=== PATIENT | female | born 1995 | race Caucasian/White ===

== ENCOUNTER 2017-10-11 20:29 | Observation (INO) | payer OTHER ==
[~2017-10-11] VITALS: Ht 162.6 cm; Wt 86.2 kg
[~2017-10-11 20:29] MED LIST: CLON.5 PO; DEXT5ER PO; HYDHCL25 PO; LEVSOD50 PO; Norco 5-325 Ta1 EACH PO; ZIPR20 PO
[2017-10-11 22:58] LABS: Source, Urine Clean Catch
[2017-10-11 23:02] LABS: Bilirubin, Urine Neg (Neg); Blood, Urine 1+ (Neg); Glucose Qualitative, Urine Neg (Neg); Ketones, Urine Neg (Neg); Leukocyte Esterase, Urine Neg (Neg); Nitrite, Urine Neg (Neg); Protein, Urine 1+ (Neg); Urobilinogen, Urine NORM (Normal)
[2017-10-11 23:03] LABS: BASOPHILS ABSOLUTE AUTO 0.03 K/mm3 (0.00-0.23); BASOPHILS PERCENT AUTO 0 % (0-2); EOSINOPHILS ABSOLUTE AUTO 0.04 K/mm3 (0.00-0.68); EOSINOPHILS PERCENT AUTO 0 % (0-6); Hematocrit 39.9 % (33.0-51.0); Hemoglobin 13.5 g/dL (11.5-16.0); IMMATURE GRAN ABSOLUTE AUTO 0.02 K/mm3 (0.00-0.10); IMMATURE GRAN PERCENT AUTO 0 % (0-1); LYMPHOCYTES ABSOLUTE AUTO 1.69 K/mm3 (0.84-5.20); LYMPHOCYTES PERCENT AUTO 17 % (21-46); MONOCYTES ABSOLUTE AUTO 0.44 K/mm3 (0.16-1.47); MONOCYTES PERCENT AUTO 4 % (4-13); Mean Corpuscular HGB 29.8 pg (26.0-34.0); Mean Corpuscular HGB Conc 33.8 g/dL (31.5-36.5); Mean Corpuscular Volume 88 fL (80-100); Mean Platelet Volume 10.3 fL (9.1-12.4); NEUTROPHILS ABSOLUTE AUTO 7.72 K/mm3 (1.96-9.15); NEUTROPHILS PERCENT AUTO 78 % (41-73); Platelet Count 143 K/mm3 (150-400); RDW Coefficient Variation 12.5 % (11.7-14.2); Red Blood Cell Count 4.53 M/mm3 (3.80-5.20); White Blood Cell Count 9.94 K/mm3 (4.00-11.30)
[2017-10-11 23:05] LABS: Appearance, Urine Clear (Clear); Color, Urine Yellow (P-Yellow)
[2017-10-11 23:08] LABS: Bacteria Mod /hpf; Squamous Epithelial Cells Mod /hpf (Few); White Blood Cells, Urine 0-2 /hpf (0-5)
[2017-10-11 23:12] LABS: U Amphetamine Screen Not Detected; U Barbituate Screen Not Detected; U Benzodiazapine Screen Not Detected; U Buprenorphine Screen Not Detected; U Cannabinoids Screen Not Detected; U Cocaine Screen Not Detected; U Methadone Screen Not Detected; U Methamphetamine Screen Not Detected; U Opiates Screen Not Detected; U Oxycodone Screen Not Detected; U Phencyclidine Screen Not Detected; U Propoxyphene Screen Not Detected
[2017-10-11 23:22] LABS: Alanine Aminotransfer (ALT/SGP 28 U/L (12-78); Albumin/Globulin Ratio 1.2 (0.8-1.8); Alk Phos 95 U/L (50-136); Anion Gap 9 mmol/L (6-16); Aspartate Aminotrans (AST/SGOT 24 U/L (12-37); Bilirubin, Total 0.3 mg/dL (0.1-1.0); Blood Urea Nitrogen 16 mg/dL (8-24); Bun/Creatinine Ratio 28.4 (12.0-20.0); CO2, Blood 23 mmol/L (21-32); Calcium, Blood 8.7 mg/dL (8.5-10.1); Chloride, Blood 108 mmol/L (98-108); Creatinine, Blood 0.56 mg/dL (0.40-1.00); Ethanol (Alcohol), Blood, Med <3 mg/dL; Globulin, Blood 3.4 g/dL (2.2-4.0); Glomerular Filtration Rate >60 (60-); Glucose, Blood 107 mg/dL (70-99); Potassium, Blood 3.8 mmol/L (3.5-5.5); Salicylate <1.7 mg/dL (2.8-20.0); Sodium, Blood 140 mmol/L (136-145); Total Protein, Blood 7.4 g/dL (6.4-8.2)
[2017-10-11 23:27] LABS: Acetaminophen, Random <2.0 ug/mL (10.0-30.0)
== END 2017-10-14 14:09 | disposition home or self-care (01) ==
LOC: ER 20:29 → EOR 20:30
PROVIDERS: Emergency Medicine
DX: R45.850 Homicidal ideations (principal); R45.851 Suicidal ideations; F31.9 Bipolar disorder, unspecified; F41.9 Anxiety disorder, unspecified; Z88.8 Allergy status to other drugs, medicaments and biological substances
CPT/HCPCS: 36415; 80053; 81001; 81025; 84443; 85025; 87086; 99285; G0378; G0480; Q0163; Q3014

== ENCOUNTER 2018-03-02 15:08 | Emergency (ER) | payer OTHER ==
[~2018-03-02] VITALS: Ht 165.1 cm; Wt 99.8 kg
[2018-03-02] MEDS ORDERED: Fluoxetine HCl10 M1 PO (15:22)
[2018-03-02] MEDS ORDERED: QUET25 PO (15:22)
[2018-03-02] MEDS ORDERED: PRAZ1 PO (15:22)
[2018-03-02] MEDS ORDERED: Norco 5-325 Ta1 EACH PO (15:47)
== END 2018-03-02 15:56 | disposition home or self-care (01) ==
LOC: ER 15:08
DX: M54.5 Low back pain (principal); F41.9 Anxiety disorder, unspecified; F31.9 Bipolar disorder, unspecified; F17.200 Nicotine dependence, unspecified, uncomplicated; Z88.8 Allergy status to other drugs, medicaments and biological substances; Z79.899 Other long term (current) drug therapy
CPT/HCPCS: 99283

== ENCOUNTER → 2018-10-24 | Outpatient (CLI) | payer OTHER ==
[~2018-10-24] MED LIST changes: +Fluoxetine HCl10 M1 PO; +PRAZ1 PO; +QUET25 PO
== END | disposition home or self-care (01) ==
LOC: LAB SHORT 12:00 → LAB 12:00
PROVIDERS: Obstetrics & Gynecology
DX: Z01.419 Encounter for gynecological examination (general) (routine) without abnormal findings (principal)
CPT/HCPCS: G0123

== ENCOUNTER → 2019-04-09 | Outpatient (CLI) | payer OTHER ==
[2019-04-09 16:41] LABS: U Amphetamine Screen Not Detected; U Barbituate Screen Not Detected; U Benzodiazapine Screen DETECTED; U Buprenorphine Screen Not Detected; U Cannabinoids Screen Not Detected; U Cocaine Screen Not Detected; U Methadone Screen Not Detected; U Methamphetamine Screen Not Detected; U Opiates Screen Not Detected; U Oxycodone Screen Not Detected; U Phencyclidine Screen Not Detected; U Propoxyphene Screen Not Detected
== END ==
LOC: LAB 14:21 → LAB SHORT 14:21
PROVIDERS: Registered Nurse
DX: Z51.81 Encounter for therapeutic drug level monitoring (principal); Z79.899 Other long term (current) drug therapy
CPT/HCPCS: G0480

== ENCOUNTER 2020-05-20 13:12 | Emergency (ER) | payer MEDICARE, OTHER ==
[~2020-05-20] VITALS: Ht 162.6 cm; Wt 117.9 kg
[~2020-05-20 13:12] MED LIST changes: +Ativan1 MG PO
[2020-05-20 13:54] LABS: BASOPHILS ABSOLUTE AUTO 0.03 K/mm3 (0.00-0.23); BASOPHILS PERCENT AUTO 0 % (0-2); EOSINOPHILS ABSOLUTE AUTO 0.07 K/mm3 (0.00-0.68); EOSINOPHILS PERCENT AUTO 1 % (0-6); Hematocrit 44.6 % (33.0-51.0); Hemoglobin 14.7 g/dL (11.5-16.0); IMMATURE GRAN ABSOLUTE AUTO 0.04 K/mm3 (0.00-0.10); IMMATURE GRAN PERCENT AUTO 0 % (0-1); LYMPHOCYTES ABSOLUTE AUTO 2.34 K/mm3 (0.84-5.20); LYMPHOCYTES PERCENT AUTO 24 % (21-46); MONOCYTES ABSOLUTE AUTO 0.52 K/mm3 (0.16-1.47); MONOCYTES PERCENT AUTO 5 % (4-13); Mean Corpuscular HGB 28.4 pg (26.0-34.0); Mean Corpuscular Volume 86 fL (80-100); Mean Platelet Volume 10.5 fL (9.1-12.4); NEUTROPHILS ABSOLUTE AUTO 6.84 K/mm3 (1.96-9.15); NEUTROPHILS PERCENT AUTO 70 % (41-73); Platelet Count 189 K/mm3 (150-400); RDW Coefficient Variation 13.9 % (11.7-14.2); RDW Standard Deviation 43.8 fL (35.1-46.3); Red Blood Cell Count 5.18 M/mm3 (3.80-5.20); White Blood Cell Count 9.84 K/mm3 (4.00-11.30)
[2020-05-20 14:21] LABS: Source, Urine Clean Catch
[2020-05-20 14:33] LABS: Appearance, Urine Turbid (Clear); Bilirubin, Urine Neg (Neg); Blood, Urine 5+ (Neg); Color, Urine Red (P-Yellow); Glucose Qualitative, Urine Neg (Neg); Ketones, Urine Neg (Neg); Leukocyte Esterase, Urine 1+ (Neg); Nitrite, Urine Neg (Neg); Protein, Urine 3+ (Neg); Urobilinogen, Urine NORM (Normal)
[2020-05-20 14:43] LABS: Alanine Aminotransfer (ALT/SGP 44 U/L (12-78); Albumin, Blood 3.9 g/dL (3.4-5.0); Alk Phos 113 U/L (50-136); Anion Gap 9 mmol/L (6-16); Aspartate Aminotrans (AST/SGOT 27 U/L (12-37); Bilirubin, Total 0.6 mg/dL (0.1-1.0); Blood Urea Nitrogen 9 mg/dL (8-24); Bun/Creatinine Ratio 11.7 (12.0-20.0); CO2, Blood 20 mmol/L (21-32); Calcium, Blood 8.9 mg/dL (8.5-10.1); Chloride, Blood 112 mmol/L (98-108); Creatinine, Blood 0.77 mg/dL (0.40-1.00); Glomerular Filtration Rate >60 (60-); Glucose, Blood 109 mg/dL (70-99); Potassium, Blood 3.7 mmol/L (3.5-5.5); Sodium, Blood 141 mmol/L (136-145); Total Protein, Blood 7.9 g/dL (6.4-8.2)
[2020-05-20] MEDS ORDERED: ONDA4ODT MM (15:11)
[2020-05-20] MEDS ORDERED: FAMO20 (15:12)
[2020-05-20 15:25] LABS: Red Blood Cells, Urine TNTC /hpf (0-2); Squamous Epithelial Cells Few /hpf (Few); White Blood Cells, Urine 0-2 /hpf (0-5)
[2020-05-20 15:26] LABS: Bacteria Rare /hpf
[2020-05-20] MEDS ORDERED: KETO10 PO (15:50)
[2020-05-20] MEDS ORDERED: ONDA4 PO (15:50)
[2020-05-21] MEDS ORDERED: TRAM50 PO (14:44)
[2020-05-21] MEDS ORDERED: CEPH500 PO (14:44)
== END 2020-05-20 16:46 | disposition home or self-care (01) ==
LOC: ER 13:12
PROVIDERS: Physician Assistant
DX: N13.2 Hydronephrosis with renal and ureteral calculous obstruction (principal); F31.9 Bipolar disorder, unspecified; F41.9 Anxiety disorder, unspecified; F17.210 Nicotine dependence, cigarettes, uncomplicated; Z88.8 Allergy status to other drugs, medicaments and biological substances; Z79.899 Other long term (current) drug therapy
CPT/HCPCS: 36415; 76770; 80053; 81001; 81025; 83690; 85025; 87086; 96361; 96374; 99284-25; J1885; J2405; J7030

== ENCOUNTER 2020-05-21 13:09 | Emergency (ER) | payer MEDICARE, OTHER ==
[~2020-05-21] VITALS: Ht 162.6 cm; Wt 117.9 kg
[~2020-05-21 13:09] MED LIST changes: +FAMO20; +KETO10 PO; +ONDA4 PO; +ONDA4ODT MM
[2020-05-21] MEDS ORDERED: TRAM50 PO (14:44)
[2020-05-21] MEDS ORDERED: CEPH500 PO (14:44)
== END 2020-05-21 15:05 | disposition home or self-care (01) ==
LOC: ER 13:09
DX: N20.0 Calculus of kidney (principal); N39.0 Urinary tract infection, site not specified; F41.9 Anxiety disorder, unspecified; F31.9 Bipolar disorder, unspecified; F17.210 Nicotine dependence, cigarettes, uncomplicated; Z88.8 Allergy status to other drugs, medicaments and biological substances; Z79.899 Other long term (current) drug therapy
CPT/HCPCS: 99283; A9270-GY

== ENCOUNTER → 2020-11-01 | Outpatient (CLI) | payer MEDICARE, OTHER ==
[~2020-11-01] MED LIST changes: +CEPH500 PO; +HYDPAM50 PO; +TRAM50 PO
[2020-11-02 10:29] LABS: Candida species (DNA Probe) Negative (NEGATIVE); G. vaginalis (DNA Probe) Positive (NEGATIVE); T. vaginalis (DNA Probe) Negative (NEGATIVE)
[2020-11-05 23:06] LABS: HPV APTIMA Positive (Negative); HPV GENOTYPE 16 Negative (Negative)
== END ==
LOC: LAB SHORT 16:48
PROVIDERS: Family Medicine
DX: Z12.4 Encounter for screening for malignant neoplasm of cervix (principal); N76.0 Acute vaginitis
CPT/HCPCS: 87480; 87510; 87625; 87660; G0123

== ENCOUNTER 2021-01-03 12:05 | Day surgery (SDC) | payer MEDICARE, OTHER ==
[~2021-01-03] VITALS: Ht 165.1 cm; Wt 112.8 kg
[~2021-01-03 12:05] MED LIST changes: +ALPR.25; +ESCI10 PO; +FAMO20 PO; +FERSU300
== END 2021-01-03 13:30 | disposition home or self-care (01) ==
LOC: ORSCSDS 12:05
PROVIDERS: Internal Medicine Gastroenterology
PROC: 0DB98ZX Excision of Duodenum, Via Natural or Artificial Opening Endoscopic, Diagnostic (ICD-10-PCS; principal; 2021-01-03 13:15)
PROC: 0DB68ZX Excision of Stomach, Via Natural or Artificial Opening Endoscopic, Diagnostic (ICD-10-PCS; principal; 2021-01-03 13:15)
DX: K21.9 Gastro-esophageal reflux disease without esophagitis (principal); R10.13 Epigastric pain; F41.9 Anxiety disorder, unspecified; E66.01 Morbid (severe) obesity due to excess calories; Z68.41 Body mass index [BMI] 40.0-44.9, adult; Z87.891 Personal history of nicotine dependence; Z79.899 Other long term (current) drug therapy
CPT/HCPCS: 88305; 88342; J2704; J7120

== ENCOUNTER → 2022-03-08 | Outpatient (CLI) | payer MEDICARE, OTHER | END | disposition home or self-care (01) | LOC: LAB 15:20 → LAB SHORT 15:20 | PROVIDERS: Family Medicine | DX: Z01.419 Encounter for gynecological examination (general) (routine) without abnormal findings (principal) | CPT/HCPCS: G0123 ==

== ENCOUNTER 2024-02-11 15:31 | Inpatient (IN) | payer MEDICARE, OTHER ==
[~2024-02-11] VITALS: Ht 162.6 cm; Wt 109.1 kg
[~2024-02-11 15:31] MED LIST changes: -ALPR.25; +ALPR.25 PO
[2024-02-11] MEDS ORDERED: LORazepam 1 MG Tab PO ONE (15:55)
[2024-02-11] MEDS ORDERED: Labetalol HCL 5 MG/ML 4ML Injection (Single Dose) IV ONE (16:45)
[2024-02-11 16:46] LABS: Prothrombin Time Results 10.7 Sec (9.7-11.5)
[2024-02-11 16:50] LABS: BASOPHILS ABSOLUTE AUTO 0.03 K/mm3 (0.00-0.23); BASOPHILS PERCENT AUTO 0 % (0-2); EOSINOPHILS ABSOLUTE AUTO 0.08 K/mm3 (0.00-0.68); EOSINOPHILS PERCENT AUTO 1 % (0-6); Hematocrit 51.2 % (33.0-51.0); Hemoglobin 18.2 g/dL (11.5-16.0); IMMATURE GRAN ABSOLUTE AUTO 0.02 K/mm3 (0.00-0.10); IMMATURE GRAN PERCENT AUTO 0 % (0-1); LYMPHOCYTES ABSOLUTE AUTO 2.36 K/mm3 (0.84-5.20); LYMPHOCYTES PERCENT AUTO 28 % (21-46); MONOCYTES ABSOLUTE AUTO 0.44 K/mm3 (0.16-1.47); MONOCYTES PERCENT AUTO 5 % (4-13); Mean Corpuscular HGB 35.1 pg (26.0-34.0); Mean Corpuscular HGB Conc 35.5 g/dL (31.5-36.5); Mean Corpuscular Volume 99 fL (80-100); Mean Platelet Volume 9.9 fL (9.1-12.4); NEUTROPHILS ABSOLUTE AUTO 5.45 K/mm3 (1.96-9.15); NEUTROPHILS PERCENT AUTO 65 % (41-73); Platelet Count 130 K/mm3 (150-400); RDW Coefficient Variation 13.2 % (11.7-14.2); RDW Standard Deviation 47.5 fL (35.1-46.3); Red Blood Cell Count 5.19 M/mm3 (3.80-5.20); White Blood Cell Count 8.38 K/mm3 (4.00-11.30)
[2024-02-11 17:19] LABS: Albumin, Blood 3.7 g/dL (3.4-5.0); Albumin/Globulin Ratio 0.9 (0.8-1.8); Bilirubin, Total 1.3 mg/dL (0.1-1.0); Bun/Creatinine Ratio 14.8 (12.0-20.0); Calcium, Blood 9.4 mg/dL (8.5-10.1); Creatinine, Blood 0.74 mg/dL (0.40-1.00); Potassium, Blood 3.2 mmol/L (3.5-5.5); Total Protein, Blood 7.7 g/dL (6.4-8.2)
[2024-02-11 18:17] LABS: C-REACTIVE PROTEIN, EXT RANGE 1.19 mg/dL (0.000-0.300)
[2024-02-11] MEDS ORDERED: Potassium Chloride 20 MEQ/15 ML UDC PO ONE (22:00)
[2024-02-11] MEDS ORDERED: Acetaminophen 325 MG TABLET PO PRN (22:20)
[2024-02-11] MEDS ORDERED: BusPIRone HCl 10 MG Tab PO PRN (22:20)
[2024-02-11] MEDS ORDERED: Ondansetron 4 MG TAB PO PRN (22:20)
[2024-02-11] MEDS ORDERED: HyDROXyzine HCl 10 MG Tab PO PRN (22:20)
[2024-02-11] MEDS ORDERED: Labetalol HCL 5 MG/ML 4ML Injection (Single Dose) IV PRN (22:25)
[2024-02-11] MEDS ORDERED: LORazepam 1 MG Tab PO PRN (22:25)
[2024-02-11] MEDS ORDERED: ChlordiazePOXIDE 25 MG Cap PO PRN (22:30)
[2024-02-11 22:52] LABS: Magnesium, Blood 1.9 mg/dL (1.6-2.4); Phosphorus, Blood 2.2 mg/dL (2.5-4.9)
[2024-02-12] VITALS (7 sets, daily range): BP systolic 153–186; BP diastolic 78–101
--- NOTE | 2024-02-12 00:17 | NUR ---
PT ARRIVED TO [facility] VIA W/C. MOM AT SIDE. PT IS A/O. STATES NEEDS APPROPRIATELY. ON RA. WILL CONTINUE TO PROVIDE CARE T/O SHIFT. CALL LT IN REACH.
[2024-02-12] MEDS ORDERED: Atarax10 MG PO (02:02)
[2024-02-12] MEDS ORDERED: BUSP10 PO (02:02)
--- NOTE | 2024-02-12 02:09 | NUR ---
PT STATES LAST DRINK WAS YESTERDAY. NO S/SX OF ALCOHOL WITHDRAWALS AT THIS TIME.
--- NOTE | 2024-02-12 05:10 | NUR ---
SHIFT SUMMARY: ER ADMIT. A/O. CAN EASILY BECOME ANXIOUS, HX OF BIPOLAR AND ANXIETY. MOM STAYED AT BEDSIDE T/O NIGHT, PT RESTED WELL. TYLENOL GIVEN FOR HEADACHE WITH GOOD RELIEF. ON RA. SINUS RHYTHM IN 60'S ON TELE. SBA TO THE BR FOR PT SAFETY AND TO HELP PREVENT A FALL. TAKES MEDS WHOLE WITH WATER. SKIN IS FLUSHED. CHRONIC HEAVY ETOH USER, LAST DRINK SATURDAY. HYPERTENSIVE, 5MG IV LABETALOL GIVEN SBP GREATER THAN 140. WILL CONTINUE TO PROVIDE CARE T/O SHIFT UNTIL SHIFT REPORT TO ONCOMING RN. CALL LT IN REACH.
[2024-02-12 05:18] LABS: BASOPHILS ABSOLUTE AUTO 0.01 K/mm3 (0.00-0.23); BASOPHILS PERCENT AUTO 0 % (0-2); EOSINOPHILS ABSOLUTE AUTO 0.13 K/mm3 (0.00-0.68); EOSINOPHILS PERCENT AUTO 2 % (0-6); Hematocrit 45.8 % (33.0-51.0); Hemoglobin 15.8 g/dL (11.5-16.0); IMMATURE GRAN ABSOLUTE AUTO 0.02 K/mm3 (0.00-0.10); IMMATURE GRAN PERCENT AUTO 0 % (0-1); LYMPHOCYTES PERCENT AUTO 36 % (21-46); MONOCYTES ABSOLUTE AUTO 0.77 K/mm3 (0.16-1.47); MONOCYTES PERCENT AUTO 10 % (4-13); Mean Corpuscular HGB 33.8 pg (26.0-34.0); Mean Corpuscular HGB Conc 34.5 g/dL (31.5-36.5); Mean Corpuscular Volume 98 fL (80-100); Mean Platelet Volume 9.9 fL (9.1-12.4); NEUTROPHILS ABSOLUTE AUTO 4.13 K/mm3 (1.96-9.15); NEUTROPHILS PERCENT AUTO 52 % (41-73); Platelet Count 120 K/mm3 (150-400); RDW Coefficient Variation 13.2 % (11.7-14.2); RDW Standard Deviation 47.7 fL (35.1-46.3); Red Blood Cell Count 4.67 M/mm3 (3.80-5.20); White Blood Cell Count 7.96 K/mm3 (4.00-11.30)
[2024-02-12 06:08] LABS: Albumin, Blood 3.4 g/dL (3.4-5.0); Bilirubin, Total 0.8 mg/dL (0.1-1.0); Bun/Creatinine Ratio 13.4 (12.0-20.0); Calcium, Blood 8.9 mg/dL (8.5-10.1); Creatinine, Blood 0.67 mg/dL (0.40-1.00); Globulin, Blood 3.3 g/dL (2.2-4.0); Magnesium, Blood 2.2 mg/dL (1.6-2.4); Phosphorus, Blood 3.6 mg/dL (2.5-4.9); Potassium, Blood 3.1 mmol/L (3.5-5.5); Total Protein, Blood 6.7 g/dL (6.4-8.2)
[2024-02-12] MEDS ORDERED: Folic Acid 1 MG in NS 50 ML IV SCH (09:00)
[2024-02-12] MEDS ORDERED: Potassium Chloride 20 MEQ TabCR PO ONE (09:00)
[2024-02-12] MEDS ORDERED: Citalopram Hydrobromide 20 MG Tab PO SCH (09:00)
[2024-02-12] MEDS ORDERED: Thiamine HCl 100 MG in NS 50 ML IV SCH (09:00)
[2024-02-12] MEDS ORDERED: HydrALAZINE HCl 10 MG Tab PO PRN (10:35)
[2024-02-12] MEDS ORDERED: AmLODIPine Besylate 5 MG Tab PO SCH (11:00)
[2024-02-12] MEDS ORDERED: Morphine Sulfate 4 MG/1 ML Injection IV PRN ×2 (15:25→20:10)
--- NOTE | 2024-02-12 18:45 | NUR ---
SHIFT SUMMARY PATIENT ALERT AND INTERACTIVE. PATIENT HAVING EPISODES OF ANXIETY ESPECIALLY WHEN HEAD HURTING OR UNSURE OF WHAT IS HAPPENING NEXT. PATIENT AFRAID OF DYING AND WORRYING ABOUT HEAD BLEED. REASSURED PATIENT THAT SHE IS DOING WELL AND CONTINUE TO MEDICATE FOR PAIN, ANXIETY AND ALCOHOL WITHDRAWLS. PATIENT HAD A GOOD DAY UNTIL ABOUT 2PM AFTER TALKING WITH BOYFRIEND. PATIENT REPORTED AN INCREASE IN HEADACHE AND BECAME EXTREMELY ANXIOUS. NO CHANGES IN NEURO STATUS OR PUPILS. PATIENT MEDICATED PER ORDERS. NON PHARMACOLOGICAL MEASURES PUT IN PLACE. HEATING PAD, LAVENDER SENT, STUFFED ANIMAL, GENTLE TOUCH PROVIDED. PATIENT CONTINUES TO HAVE NAGGING HEADACHE. AFTER BEING MEDICATED FOR PAIN. PATIENT ABLE TO AMBULATE IN HALLS WITH MOTHER AT SIDE. PATIENT ALSO TOOK AN LONG SHOWER TO HELP REDUCE ANXIETY.
[2024-02-12] MEDS ORDERED: Nicotine 21 MG PATCH TOP SCH (20:40)
[2024-02-12] MEDS ORDERED: Melatonin 5 MG Tablet PO SCH (21:00)
[2024-02-13 05:03] LABS: BASOPHILS ABSOLUTE AUTO 0.02 K/mm3 (0.00-0.23); BASOPHILS PERCENT AUTO 0 % (0-2); EOSINOPHILS ABSOLUTE AUTO 0.04 K/mm3 (0.00-0.68); EOSINOPHILS PERCENT AUTO 1 % (0-6); Hematocrit 47.4 % (33.0-51.0); Hemoglobin 16.5 g/dL (11.5-16.0); IMMATURE GRAN ABSOLUTE AUTO 0.03 K/mm3 (0.00-0.10); IMMATURE GRAN PERCENT AUTO 0 % (0-1); LYMPHOCYTES ABSOLUTE AUTO 1.32 K/mm3 (0.84-5.20); LYMPHOCYTES PERCENT AUTO 16 % (21-46); MONOCYTES PERCENT AUTO 7 % (4-13); Mean Corpuscular HGB 34.2 pg (26.0-34.0); Mean Corpuscular HGB Conc 34.8 g/dL (31.5-36.5); Mean Corpuscular Volume 98 fL (80-100); Mean Platelet Volume 10.5 fL (9.1-12.4); NEUTROPHILS ABSOLUTE AUTO 6.15 K/mm3 (1.96-9.15); NEUTROPHILS PERCENT AUTO 75 % (41-73); Platelet Count 133 K/mm3 (150-400); RDW Coefficient Variation 12.9 % (11.7-14.2); RDW Standard Deviation 46.5 fL (35.1-46.3); Red Blood Cell Count 4.83 M/mm3 (3.80-5.20); White Blood Cell Count 8.16 K/mm3 (4.00-11.30)
[2024-02-13 05:04] VITALS: BP 166/69
--- NOTE | 2024-02-13 05:19 | NUR ---
VICE PRESIDENT OF OPERATIONS NOTES PATIENT IS A&OX4, VITALS ARE ELEVATED. LAST BP TAKEN IS 166/69 HAS A PRN HYDRAZON. PATIENT IS ON ROOM AIR.PATIEMT COMPLAIN OF HEADACHE AND TYLENOL WAS GIVEN. PATIENT IS ON TELE RUNNING SINUS JOANNA AT 54. PATIENT REQUESTED FOR MELATONON, NICOTINE PATCH AND MORPHINE AND MD ORDERED THEM. PATIENT WAS ABLE TO SLEEP WELL AFTER GIVEN HER PRN MEDS PATIENT HAS A HISTORY OF ANXIETY AND TEND TO BE ANXCIOUS AT TIMES BUT WAS CALM AND COOPERATIVE THROUGHOUT NIGHT.
[2024-02-13 05:48] LABS: Albumin, Blood 3.4 g/dL (3.4-5.0); Albumin/Globulin Ratio 0.9 (0.8-1.8); Bun/Creatinine Ratio 5.7 (12.0-20.0); Calcium, Blood 8.9 mg/dL (8.5-10.1); Creatinine, Blood 0.53 mg/dL (0.40-1.00); Globulin, Blood 3.6 g/dL (2.2-4.0); Potassium, Blood 3.8 mmol/L (3.5-5.5)
[2024-02-13 07:29] VITALS: BP 192/100
[2024-02-13] MEDS ORDERED: HydrALAZINE HCl 25 MG Tab PO PRN (08:20)
[2024-02-13] MEDS ORDERED: Nicotine 21 MG PATCH TOP SCH (09:00)
[2024-02-13] MEDS ORDERED: AmLODIPine Besylate 5 MG Tab PO SCH (09:00)
[2024-02-13] MEDS ORDERED: Losartan Potassium 25 MG Tab PO SCH (09:00)
[2024-02-13] MEDS ORDERED: Losartan Potassium 25 MG Tab PO ONE (13:00)
[2024-02-13] MEDS ORDERED: AMLO10 PO (13:30)
[2024-02-13] MEDS ORDERED: Acetaminophen325 M1 PO (13:30)
[2024-02-13] MEDS ORDERED: HYDRA25 PO (13:31)
[2024-02-13] MEDS ORDERED: LOSA50 PO (13:31)
[2024-02-13] MEDS ORDERED: NICO21TP TOP (13:32)
--- NOTE | 2024-02-13 13:45 | NUR ---
SHIFT SUMMARY AND DISCHARGE PATIENT ALERT AND INTERACTIVE. PATIENT STATES THAT SHE FEELS MUCH BETTER TODAY BUT STILL HAS A MILD HEADACHE. CT DONE WITH REPORTS OF IMPROVEMENT. BP IMPROVED AND ANXIETY CONTROLLED. PATIENT UP WALKING THE HALLS WITH MOTHER AT TIMES. DISCHARGE ORDERS PLACED. EDUCATION PROVIDED RELATED TO CURRENT SITUATION, BLOOD PRESSURE CONTROL, DIET, STOPPING DRINKING, AND STOPPING SMOKING. DISCHARGE INSTRUCTIONS REVIEWED WITH PATIENT AND MOTHER. IV DC'D. BELONGINGS SENT HOME WITH PATIENT. PATIENT TRANSPORTED OUT VIA WHEELCHAIR.
== END 2024-02-13 14:37 | disposition home or self-care (01) | DRG 65 ==
LOC: ER 15:31 → MEDS 15:32
PROVIDERS: Emergency Medicine; Family Medicine; Internal Medicine; Student in an Organized Health Care Education/Training Program; ADMIT Internal Medicine
PROC: HZ2ZZZZ Detoxification Services for Substance Abuse Treatment (ICD-10-PCS; principal; 2024-02-12)
DX: I60.8 Other nontraumatic subarachnoid hemorrhage (principal); I67.848 Other cerebrovascular vasospasm and vasoconstriction; Q04.8 Other specified congenital malformations of brain; F10.90 Alcohol use, unspecified, uncomplicated; E87.6 Hypokalemia; F17.210 Nicotine dependence, cigarettes, uncomplicated; F41.9 Anxiety disorder, unspecified; Z87.442 Personal history of urinary calculi; Z71.41 Alcohol abuse counseling and surveillance of alcoholic; Z88.8 Allergy status to other drugs, medicaments and biological substances; Z71.6 Tobacco abuse counseling; Z79.899 Other long term (current) drug therapy
CPT/HCPCS: 36415; 70450; 70496; 80053; 83735; 84100; 85025; 85610; 86140; 93005; 93010; 96365; 96368; 96374-59; 96375-59; 96376; 97112; 97116; 97161; 99285-25; A9270; G0378; J2270; J3411; Q9967